=== PATIENT | female | born 1975 | race American Indian/Alaskan Native ===

== ENCOUNTER 2021-05-30 13:00 | Emergency (ER) | payer SELFPAY ==
--- NOTE | 2021-05-30 14:30 | XRay Report ---
CHEST 2 VIEWS INDICATION / CLINICAL INFORMATION: dyspnea. COMPARISON: None available. FINDINGS: SUPPORT DEVICES: None. HEART / MEDIASTINUM: No significant abnormality. LUNGS / PLEURA: No significant pulmonary or pleural abnormality. No pneumothorax. ADDITIONAL FINDINGS: No significant additional findings. IMPRESSION: 1. No acute findings. Signer Name: Suhail Romero MD Signed: 05/30/2021 2:25 PM Workstation Name: [email or web address]
--- NOTE | 2021-05-30 14:47 | Emergency Department Report ---
- General Chief Complaint: Weakness Stated Complaint: WEAKNESS Time Seen by Provider: 05/30/21 14:36 Source: patient Mode of arrival: Ambulatory Limitations: No Limitations - History of Present Illness Initial Comments: Patient is a 45-year-old female presents emergency room complaints of URI symptoms that began approximately 2 and half weeks ago. She reports that she was exposed to Covid on 05/11/2021. She states that she went to get tested for COVID-19 a few days ago and states that she tested negative. She reports that she has been having chills, body aches, headache, diarrhea, dry cough, mild shortness of breath, right ear pain, sore throat. She denies any vomiting, chest pain, hemoptysis, leg swelling, calf pain. She has not been taking any medications for her symptoms. Allergy to oxytocin. PMHx anxiety, depression. - Related Data Previous Rx's Medication Instructions Recorded Last Taken Type Benzonatate [Tessalon Perles] 100 mg PO Q8HR PRN #12 cap 05/30/21 Unknown Rx Butalb/Acetaminophen/Caffeine 1 cap PO Q8HR PRN #8 cap 05/30/21 Unknown Rx [Fioricet 50-300-40 mg CAP] Hyoscyamine Subl [Levsin Sl 0.125 0.125 mg SL Q6HR PRN #8 tab 05/30/21 Unknown Rx TAB] guaiFENesin ER [Mucinex ER] 600 mg PO Q12H #14 tab 05/30/21 Unknown Rx Allergies Allergy/AdvReac Type Severity Reaction Status Date / Time oxytocin [From Pitocin] AdvReac Swelling Verified 05/30/21 13:03 ED Review of Systems ROS: Stated complaint: WEAKNESS Other details as noted in HPI Comment: All other systems reviewed and negative ED Past Medical Hx - Past Medical History Additional medical history: anxiety, depression. OBESITY - Surgical History Additional Surgical History: Left eye chalazia removal. Tubaligation - Social History Smoking Status: Never Smoker Substance Use Type: None - Medications Home Medications: Home Medications Medication Instructions Recorded Confirmed Last Taken Type Benzonatate [Tessalon Perles] 100 mg PO Q8HR PRN #12 cap 05/30/21 Unknown Rx Butalb/Acetaminophen/Caffeine 1 cap PO Q8HR PRN #8 cap 05/30/21 Unknown Rx [Fioricet 50-300-40 mg CAP] Hyoscyamine Subl [Levsin Sl 0.125 0.125 mg SL Q6HR PRN #8 tab 05/30/21 Unknown Rx TAB] guaiFENesin ER [Mucinex ER] 600 mg PO Q12H #14 tab 05/30/21 Unknown Rx ED Physical Exam - General Limitations: No Limitations General appearance: alert, in no apparent distress - Head Head exam: Present: atraumatic, normocephalic - Eye Eye exam: Present: normal appearance - ENT ENT exam: Present: normal orophraynx, mucous membranes moist, TM's normal bilaterally, normal external ear exam - Respiratory Respiratory exam: Present: normal lung sounds bilaterally. Absent: respiratory distress, wheezes, rales, rhonchi, stridor, chest wall tenderness, accessory muscle use, decreased breath sounds, prolonged expiratory - Cardiovascular Cardiovascular Exam: Present: regular rate, normal rhythm, normal heart sounds. Absent: systolic murmur, diastolic murmur, rubs, gallop - Neurological Exam Neurological exam: Present: alert, oriented X3 - Psychiatric Psychiatric exam: Present: normal affect, normal mood - Skin Skin exam: Present: warm, dry, intact ED Course Vital Signs 05/30/21 05/30/21 13:06 14:59 Temperature 98.3 F Pulse Rate 64 62 Respiratory 18 14 Rate Blood Pressure 129/67 Blood Pressure 133/79 [Right] O2 Sat by Pulse 100 100 Oximetry ED Medical Decision Making - Radiology Data Radiology results: report reviewed Ordering Physician: ALEX AGUIRRE MD Date of Service: 05/30/21 Procedure(s): XR chest routine 2V Accession Number(s): [id number] cc: ALEX AGUIRRE MD Fluoro Time In Minutes: CHEST 2 VIEWS INDICATION / CLINICAL INFORMATION: dyspnea. COMPARISON: None available. FINDINGS: SUPPORT DEVICES: None. HEART / MEDIASTINUM: No significant abnormality. LUNGS / PLEURA: No significant pulmonary or pleural abnormality. No pneumothorax. ADDITIONAL FINDINGS: No significant additional findings. IMPRESSION: 1. No acute findings. Signer Name: Suhail Romero MD Signed: 05/30/2021 2:25 PM Workstation Name: [email or web address] Transcribed By: DMITRY Dictated By: Suhail Romero MD Electronically Authenticated By: Suhail Romero MD Signed Date/Time: 05/30/211424 DD/ 24 TD/TT: - Medical Decision Making Patient is a 45-year-old female presents emergency room complaints of URI symptoms that began approximately 2 and half weeks ago. She reports that she was exposed to Covid on 05/11/2021. She states that she went to get tested for COVID-19 a few days ago and states that she tested negative. She reports that she has been having chills, body aches, headache, diarrhea, dry cough, mild shortness of breath, right ear pain, sore throat. She denies any vomiting, chest pain, hemoptysis, leg swelling, calf pain. She has not been taking any medications for her symptoms. Allergy to oxytocin. PMHx anxiety, depression. Vitals are normal. Breath sounds are clear bilaterally, no wheezing, no rales, no rhonchi, normal oropharynx, normal TMs and canals. Chest x-ray 1. No acute findings. Symptoms and examination likely consistent with URI. Discussed supportive care and symptomatic treatment with patient and importance of oral hydration. Advised patient Please take medication as prescribed. Increase your fluid intake. Follow-up with your primary care doctor. Return to emergency room for any new or worsening symptoms. Critical care attestation.: If time is entered above; I have spent that time in minutes in the direct care of this critically ill patient, excluding procedure time. ED Disposition Clinical Impression: URI (upper respiratory infection) Qualifiers: URI type: unspecified URI Qualified Code(s): J06.9 - Acute upper respiratory infection, unspecified Disposition: 01 HOME / SELF CARE / HOMELESS Is pt being admited?: No Does the pt Need Aspirin: No Condition: Stable Instructions: Viral Respiratory Infection Additional Instructions: Please take medication as prescribed. Increase your fluid intake. Follow-up with your primary care doctor. Return to emergency room for any new or worsening symptoms. Prescriptions: Butalb/Acetaminophen/Caffeine [Fioricet 50-300-40 mg CAP] 1 cap PO Q8HR PRN #8 cap PRN Reason: headache Hyoscyamine Subl [Levsin Sl 0.125 TAB] 0.125 mg SL Q6HR PRN #8 tab PRN Reason: abd cramping/diarrhea guaiFENesin ER [Mucinex ER] 600 mg PO Q12H #14 tab Benzonatate [Tessalon Perles] 100 mg PO Q8HR PRN #12 cap PRN Reason: cough Referrals: ELENA CHI MD [Staff Physician] - 3-5 Days [facility] [Provider Group] - 3-5 Days Forms: Work/School Release Form(ED) Time of Disposition: 14:45 Print Language: PERSIAN
[2021-05-30 15:04] VITALS: BP 133/79
== END 2021-05-30 15:26 | disposition home or self-care (01) ==
LOC: ED 13:00
DX: J06.9 Acute upper respiratory infection, unspecified (principal)
CPT/HCPCS: 71046; 99283